=== PATIENT | female | born 1965 | race Caucasian/White ===

== ENCOUNTER 2025-03-08 13:14 | Emergency (ER) | payer SELFPAY ==
--- NOTE | 2025-03-08 13:18 | ED_ITS ---
HPI - Female Genitourinary General Chief complaint: Urogenital-Female Stated complaint: Kidney Pain Time Seen by Provider: 03/08/25 13:17 Source: patient Mode of arrival: ambulatory Limitations: no limitations History of Present Illness HPI Narrative: Magdalena is a 5-year-old female patient presenting to the clinic today with complaints of possible UTI/kidney infection. She reports she has had left lower back/burning with urination, and frequency for the past week. Has been taking cranberry pills and increasing her water intake to help alleviate her symptoms. She may have a kidney infection. Denies any fevers, chills, body aches. Did have some episodes of diarrhea but that has resolved. Denies any abdominal pain. No radiation of pain. Rates pain 7 at 10 currently. Related Data Allergies Allergy/AdvReac Type Severity Reaction Status Date / Time No Known Allergies Allergy Verified 03/08/25 13:38 Review of Systems Review of Systems: Pertinent positives per HPI. Patient denies any fever, chills, rash, headache, visual changes, dizziness, cough, runny nose, sore throat, shortness of breath, chest pain, palpitations, nausea, vomiting, diarrhea, constipation, abdominal pain PMFSH Comments At the time of my signature, I reviewed and agree with the nursing past medical, surgical, social, and family history. There is no relevant family history pertinent to the patient complaint. Exam Narrative: General: Well-developed, obese, in no apparent distress. Head: Normocephalic, atraumatic. Cardio: Regular rate and rhythm, s1 and s2 normal, no murmur appreciated. Resp: Clear to auscultation bilaterally, no rhonchi, rales, wheezing or rubs. Abdomen: Soft, pliable, bowel sounds present in all quadrants, suprapubic tender to palpation, no organomegly, no CVAT tenderness. Course Course Emergency Course: Portions of this record may have been created with voice recognition software. Level of Care: Express Care Visit Vital Signs Vital signs: Vital Signs Temperature 36.6 C 03/08/25 13:33 Pulse Rate 70 03/08/25 13:33 Respiratory Rate 16 03/08/25 13:33 Blood Pressure 139/81 03/08/25 13:33 Pulse Oximetry 99 03/08/25 13:33 Oxygen Delivery Room Air 03/08/25 13:33 Temperature 36.6 C 03/08/25 13:33 Pulse Rate 70 03/08/25 13:33 Respiratory Rate 16 03/08/25 13:33 Blood Pressure 139/81 03/08/25 13:33 Pulse Oximetry 99 03/08/25 13:33 Oxygen Delivery Room Air 03/08/25 13:33 Vital signs reviewed MDM - Female Genitourinary MDM Narrative Medical decision making narrative: At the time of visit patient is resting comfortably on the exam table. Patient appears to be nontoxic. Complaints of possible UTI/kidney infection. She reports she has had left lower back/burning with urination, and frequency for the past week. Has been taking cranberry pills and increasing her water intake to help alleviate her symptoms. She may have a kidney infection. Denies any fevers, chills, body aches. Did have some episodes of diarrhea but that has resolved. Denies any abdominal pain. On exam patient has some suprapubic tenderness and reporting pain to the left lower back. No radiation of pain. Rates pain currently a 7/10. Labs: Urinalysis dip was performed and shows 1+ leukocytes. We will send urine for culture. Plan: I suspect patient has acute UTI. Prescription for Bactrim was sent to the pharmacy.. Supportive measures were discussed with the patient and they voiced understanding discharge instructions and agrees to treatment plan. Re turn precautions reviewed Differential Diagnosis Differential diagnosis: Likely urinary tract infection, cystitis and other (Pyelonephritis, nephrolithiasis, ureterolithiasis) Lab Data Labs: Lab Results 03/08/25 Range/Units 13:34 POC Urine Color Light/pale POC Urine Clarity Clear POC Urine pH 6.0 POC Ur Specif [place] 1.005 POC Urine Protein Negative (Negative) POC Ur Glucose (UA) Negative (Negative) POC Urine Ketones Negative (Negative) POC Urine Blood Negative (Negative) POC Urine Nitrite Negative (Negative) POC Urine Bilirubin Negative (Negative) POC Urine Urobilinogen 0.2 POC U Leukocyte Esteras 1+ (Negative) Discharge Plan Discharge Clinical Impression: Urinary tract infection Qualifiers: Urinary tract infection type: acute cystitis Hematuria presence: without hematuria Qualified Code(s): N30.00 - Acute cystitis without hematuria Patient Disposition: Home Condition: Stable Instructions: Urinary Tract Infection in Women (ED) Additional Instructions: Take Bactrim as prescribed Increase fluids and stay well hydrated Wipe front to back. May use wet wipes. Avoid tub baths If sexually active- pee before and after intercourse. Wear cotton panties Avoid tight clothing up against the genitals Follow up with your PCP in 1 week if symptoms persist. Patient Language: [place]ian Prescriptions: New sulfamethoxazole-trimethoprim [Bactrim DS] 800-160 mg tablet 1 tablet PO Q12H 7 Days Qty: 14 0RF Follow-up/Referrals: UNKNOWN,DOCTOR [Non-Staff] - Time of Disposition: 13:39 Quality NIHSS Nursing Documentation ED NIHSS nursing documentation: reviewed/agree
[2025-03-08 13:33] VITALS: BP 139/81; PULSE 70; RESP 16; TEMP 36.6; O2SAT 99
[2025-03-08 13:36] LABS: EDUAAPPEAR Clear; EDUABILI Negative (Negative); EDUABLOOD Negative (Negative); EDUACOLOR1 Light/Pale; EDUAGLUCOSE Negative (Negative); EDUAKETONE Negative (Negative); EDUALEUKO 1+ (Negative); EDUANITRATE Negative (Negative); EDUAPH 6.0; EDUAPROTEIN Negative (Negative); EDUASPGRAVITY 1.005; EDUAUROBILI 0.2
== END 2025-03-08 13:49 | disposition home or self-care (01) ==
PROVIDERS: Emergency Provider Nurse Practitioner Family
DX: N30.00 Acute cystitis without hematuria (principal)
CPT/HCPCS: 81003; 87086; 99213; G0463